=== PATIENT | male | born 1990 | race African-American/Black ===

== ENCOUNTER 2020-12-07 00:48 | Emergency (ER) | payer SELFPAY ==
[~2020-12-07] VITALS: Ht 172.7 cm; Wt 69.0 kg
[2020-12-07] MEDS ORDERED: LIDOCAINE HCL/EPINEPHRINE 1%-EPI 1:100,000 10 ML VIAL IJ NR (01:30)
[2020-12-07] MEDS ORDERED: LIDOCAINE HCL/EPINEPHRINE 1%-EPI 1:100,000 20 ML VIAL INFIL ONE (01:30)
[2020-12-07] MEDS ORDERED: IBUPROFEN 600MG TABLET PO ONE ×2 (02:45→04:30)
[2020-12-07] MEDS ORDERED: NAPR-420 MT (03:52)
[2020-12-07] MEDS ORDERED: KETOROLAC 30MG/ML VIAL IM ONE (04:00)
[2020-12-07] MEDS ORDERED: TETANUS, DIPHTHERIA, PERTUSSIS VAC/PF 0.5ML (>7YR OLD) IM ONE (04:30)
[2020-12-07 04:38] VITALS: BP 125/81
== END 2020-12-07 04:42 | disposition home or self-care (01) ==
LOC: ER 00:48 → EDSEX 00:48 → ER 04:42
DX: S01.01XA Laceration without foreign body of scalp, initial encounter (principal); S41.012A Laceration without foreign body of left shoulder, initial encounter; S01.312A Laceration without foreign body of left ear, initial encounter; S00.83XA Contusion of other part of head, initial encounter; Y08.89XA Assault by other specified means, initial encounter; Y93.89 Activity, other specified; Y92.810 Car as the place of occurrence of the external cause
CPT/HCPCS: 12013; 70450; 70486; 70490; 90471; 90715; 99285; J3490; Z7610